=== PATIENT | female | born 1960 | race Caucasian/White ===

== ENCOUNTER 2019-02-24 16:57 | Emergency (ER) | payer BC ==
[2019-02-24] MEDS ORDERED: Metoclopramide IV* 5 MG/ML 2 ML VIAL IV ONE (18:38)
[2019-02-24] MEDS ORDERED: diPHENhydraMINE IV* 50 MG/ML 1 ml VIAL (BENADRYL) IV ONE (18:38)
[2019-02-24] MEDS ORDERED: Magnesium Sulfate 2 GM IV* 2 GM/50 ML BAG IVPB ONE (18:39)
[2019-02-24] MEDS ORDERED: NS 0.9% 1000 ML** 1,000 ML IV ONE (18:39)
--- NOTE | 2019-02-24 18:43 | ED ---
Hypertension - HPI Summary HPI Summary: 58-year-old female with a significant past medical history of obesity, hyperlipidemia, type 2 diabetes mellitus, hypertension presents to the emergency department today complaining of nausea, 4 out of 10 headache, high blood pressure, cough. Patient states she has had a headache for approximately 2 weeks on and off however she does not have a history of headaches. Patient states yesterday she began feeling ill which is cause her blood pressure to rise. Patient states at home her measured blood pressure was 161/100. Patient states she has been nauseous and had 1 episode of vomiting. Patient is otherwise well and denies fever, chest pain, abdominal pain, pain with urination , rash. Patient denies recent smoking or alcohol use. Patient states she smoked marijuana prior to arrival which alleviated her symptoms. Surgical history and family history noncontributory. - History of Current Complaint Chief Complaint: EDHypertension Stated Complaint: HIGH BP, NAUSEA, COUGH PER PT Time Seen by Provider: 02/24/19 18:29 Hx Obtained From: Patient Onset/Duration: Started Days Ago Timing: Constant Associated Signs & Symptoms: Headaches - Allergies/Home Medications Allergies/Adverse Reactions: Allergies Allergy/AdvReac Type Severity Reaction Status Date / Time No Known Allergies Allergy Verified 02/24/19 17:06 PMH/Surg Hx/FS Hx/Imm Hx Endocrine/Hematology History: Reports: Hx Diabetes - diagnosed in last 6 months : she has some eye disease/tingling in feet. Denies: Hx Anemia GI History: Denies: Hx Jaundice - Cancer History Hx Chemotherapy: No Hx Radiation Therapy: No - Surgical History Surgery Procedure, Year, and Place: HYSTERECTOMY 2006 Infectious Disease History: No Infectious Disease History: Denies: Traveled Outside the [place] in Last 30 Days - Social History Alcohol Use: Daily Substance Use Type: Reports: Marijuana Type: Cigarettes Review of Systems Constitutional: Negative Eyes: Negative ENT: Negative Cardiovascular: Negative Positive: Cough Positive: Vomiting, Nausea. Negative: Abdominal Pain, Diarrhea Genitourinary: Negative Musculoskeletal: Negative Skin: Negative Positive: Headache. Negative: Weakness, Paresthesia, Numbness, Syncope Psychological: Normal All Other Systems Reviewed And Are Negative: Yes Physical Exam - Summary Physical Exam Summary: Patient has no neurological deficits. Lungs are clear to auscultation with no evidence of pneumonia. Triage Information Reviewed: Yes Vital Signs On Initial Exam: Initial Vitals Temp Pulse Resp BP Pulse Ox 98.9 F 100 18 187/104 92 02/24/19 17:03 02/24/19 17:03 02/24/19 17:03 02/24/19 17:03 02/24/19 17:03 Vital Signs Reviewed: Yes Appearance: Positive: Well-Appearing, No Pain Distress, Well-Nourished Skin: Positive: Warm, Skin Color Reflects Adequate Perfusion Eyes: Positive: EOMI, PATRICK ENT: Positive: Hearing grossly normal Respiratory/Lung Sounds: Positive: Clear to Auscultation, Breath Sounds Present. Negative: Rales, Rhonchi, Stridor, Tracheal Deviation, Wheezes, Unable to speak in full sentences Cardiovascular: Positive: RRR, S1, S2 Procedures - Sedation Patient Received Moderate/Deep Sedation with Procedure: No Diagnostics - Vital Signs Vital Signs Temp Pulse Resp BP Pulse Ox 02/24/19 17:03 98.9 F 100 18 187/104 92 - Laboratory Result Diagrams: 02/24/19 18:45 02/24/19 18:45 Lab Statement: Any lab studies that have been ordered have been reviewed, and results considered in the medical decision making process. Hypertension Course/Dx - Course Course Of Treatment: Patient was evaluated in the emergency department today for nausea and headache. Patient seen and examined vitals were stable. Patient was hypertensive at 187/104 mmHg. EKG was done promptly which shows normal sinus rhythm at a rate of 95 bpm. There is normal MO and QTc intervals. Normal axis. No evidence of STEMI. Laboratory studies returned showing hyperglycemia at 171. All other labs within normal limits. Influenza A positive. Patient was given 1 dose of tamiflu in the emergency department for influenza. Patient given prescription for Tamiflu and Zofran to be taken twice daily for 5 days for treatment of influenza. Patient's follow-up with her primary care provider in 3-5 days for further evaluation and management. Patient's headache resolved prior to discharge. - Diagnoses Differential Diagnosis/HQI PQRI: Migraine Headache, Other - Influenza, nausea Provider Diagnoses: Influenza Discharge ED - Sign-Out/Discharge Documenting (check all that apply): Patient Departure - Discharge Plan Condition: Stable Disposition: HOME Prescriptions: Ondansetron ODT TAB* [Zofran 4 MG Odt TAB*] 4 mg PO Q6H PRN #12 tab.odt PRN Reason: Nausea Oseltamivir SUSP 75 MG dose* [Tamiflu SUSP 75 MG dose*] 75 mg PO BID #10 oral.syrin Patient Education Materials: Influenza (ED) Referrals: Tracie Leon MD [Primary Care Provider] - 3 Days Additional Instructions: You were seen in the emergency department today and diagnosed with influenza. This is an upper respiratory virus which causes cough, muscle aches, fever, nausea, trouble breathing. Viruses are self-limiting and will go away on their own. Be sure to stay hydrated and rest. You may take [id number] decongestants as needed for your symptoms as well as NyQuil at night to improve sleep. Take Tylenol 650mg every 6 hours as needed for fever. Please see your primary care physician in 5 days for further evaluation and management. Please do not return to work or school until 24 hours after your fever breaks. Please return to the emergency department immediately if you develop any new or worsening symptoms. Take tamiflu 2 times daily for 5 days Take zofran every 6 hours as needed for nausea - Billing Disposition and Condition Condition: STABLE Disposition: Home - Attestation Statements Provider Attestation: I was available for consult. This patient was seen by the FERNANDO. The patient was not presented to, seen by, or examined by me. Christian Vera MD
[2019-02-24 18:51] LABS: ABS Lymphocytes 1.5 10^3/ul (1.0-4.8); ABS Monocytes 0.6 10^3/ul (0-0.8); ABS Neutrophils 5.3 10^3/ul (1.5-7.7); Eosinophil % 0.5 %; Hematocrit 40 % (35-47); Hemoglobin 13.6 g/dL (12.0-16.0); Lymphocyte % 20.5 %; Mean Corpuscular HGB Conc 34 g/dL (31-36); Mean Corpuscular Hemoglobin 34 pg (27-31); Mean Corpuscular Volume 101 fL (80-97); Platelet Count 210 10^3/uL (150-450); Red Blood Count 3.99 10^6 /uL (3.70-4.87); Red Cell Distribution Width 15 % (10-15); White Blood Count 7.4 10^3/uL (3.5-10.8)
[2019-02-24 19:05] LABS: Urine Appearance Cloudy; Urine Bilirubin Negative (Negative); Urine Blood Negative (Negative); Urine Color Yellow; Urine Glucose Negative (Negative); Urine Ketones 1+ (Negative); Urine Nitrite Negative (Negative); Urine Protein 1+(30 mg/dL) (Negative); Urine Specific Gravity 1.017 (1.010-1.030); Urine Urobilinogen Negative (Negative)
[2019-02-24 19:09] LABS: Urine Bacteria 1+ (Absent); Urine Red Blood Cell 2+(6-10/hpf) (Absent); Urine Squamous Epithelial Cell Present (Absent); Urine White Blood Cell 3+(>20/hpf) (Absent)
[2019-02-24 19:10] LABS: Albumin 4.5 g/dL (3.2-5.2); Albumin/Globulin Ratio 1.4 (1-3); Calcium 9.1 mg/dL (8.6-10.3); EGFR African American 91.5 (>60); EGFR Non-African American 75.6 (>60); Globulin 3.2 g/dL (2-4); Total Bilirubin 0.5 mg/dL (0.2-1.0); Total Protein 7.7 g/dL (6.4-8.9)
[2019-02-24 19:11] LABS: Troponin I 0.01 ng/mL (<0.03)
[2019-02-24 19:11] LABS: Influenza A Molecular POSITIVE (Negative)
[2019-02-24] MEDS ORDERED: Oseltamivir CAP* 75 MG CAP PO ONE (19:57)
[2019-02-24 20:31] VITALS: BP 147/85
--- NOTE | 2019-02-27 10:49 | ED ---
Imaging and Labs Follow Up Follow Up Type: Labs/Cultures Labs/Culture Result: Urine culture growing 75-100k. Patient Communication/Plan: I called and spoke with pt. today around 1045 and discussed results. Will tx with keflex based on culture. 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 Provider Diagnoses: Influenza
== END 2019-02-24 20:30 | disposition home or self-care (01) ==
LOC: ED 16:57
DX: J11.1 Influenza due to unidentified influenza virus with other respiratory manifestations (principal); E11.9 Type 2 diabetes mellitus without complications; E78.5 Hyperlipidemia, unspecified; I10 Essential (primary) hypertension; Z90.710 Acquired absence of both cervix and uterus
CPT/HCPCS: 36415; 80053; 81003; 81015; 83605; 83880; 84484; 85025; 87077; 87086; 87186; 93005; 96365; 96375; 99282; A9270-GY; J1200; J2765; J3475